=== PATIENT | male | born 2000 | race Caucasian/White ===

== ENCOUNTER 2018-10-29 01:30 | Inpatient (IN) | payer BC, OTHER ==
[~2018-10-29] VITALS: Ht 177.8 cm; Wt 104.3 kg
[2018-10-29] MEDS ORDERED: NS IV 1000 ML 1,000 ML IV STA (01:41)
[2018-10-29] MEDS ORDERED: fentaNYL INJECTION 100 MCG/2 ML AMP IVP STA ×2 (01:41→02:21)
[2018-10-29] MEDS ORDERED: ONDANSETRON 4 MG/2 ML (SDV) Z0FRAN IVP ONE (01:45)
[2018-10-29] MEDS ORDERED: NS IV 1000 ML 1,000 ML ONE ×3 (01:46→04:09)
--- NOTE | 2018-10-29 01:47 | ED Abdominal Pain ---
General Stated Complaint: ABD PAIN Source of Information: Patient Exam Limitations: No Limitations History of Present Illness Date Seen by Provider: Oct 29, 2018 Time Seen by Provider: 01:35 Initial Comments Here with acute onset of right-sided abdominal pain approximately 3 hours ago that is associated with nausea and the feeling like he has to have bowel movement but he is not. States pain is sharp and achy as well as crampy. Nothing seems to be making this better. Has not taken anything for the pain. Denies fever or chills. Timing/Duration: 1-3 Hours, Getting Worse Severity/Quality: Moderate, Aching, Cramping, Sharp Location: RLQ, Periumbilical Radiation: No Radiation Activities at Onset: None Modifying Factors: Worsens With Movement Associated Symptoms: Denies Symptoms; No Fever/Chills; Nausea/Vomiting; No Weakness Allergies and Home Medications Allergies Coded Allergies: No Known Drug Allergies (Unverified , 10/29/18) Patient Home Medication List Home Medication List Reviewed: Yes Review of Systems Review of Systems Constitutional: see HPI; No chills, No fever EENTM: No Symptoms Reported Respiratory: No Symptoms Reported Cardiovascular: No Symptoms Reported Gastrointestinal: See HPI, Abdominal Pain; Denies Constipated, Denies Diarrhea ; Nausea, Vomiting Genitourinary: No Symptoms Reported Musculoskeletal: no symptoms reported Skin: no symptoms reported All Other Systems Reviewed Negative Unless Noted: Yes Past Pryuugz-Xdswqm-Lalhbs Hx Past Med/Social Hx: Reviewed Nursing Past Med/Soc Hx Patient Social History Alcohol Use: Denies Use Recreational Drug Use: No Smoking Status: Never a Smoker Recent Foreign Travel: No Contact w/Someone Who Travel: No Past Medical History Surgeries: No Respiratory: No Cardiac: No Neurological: No Genitourinary: No Gastrointestinal: No Musculoskeletal: No Endocrine: No Family Medical History Reviewed Nursing Family Hx No Pertinent Family Hx Physical Exam Vital Signs Vital Signs - First Documented 10/29/18 01:38 Temp 96.4 Pulse 85 Resp 19 B/P (MAP) 154/94 (114) Capillary Refill : Height/Weight/BMI Height: '" Weight: lbs. oz. kg; BMI Method: General Appearance: WD/WN, no apparent distress Neck: full range of motion, supple Respiratory: lungs clear, normal breath sounds Cardiovascular: regular rate, rhythm, no murmur Gastrointestinal: normal bowel sounds, soft; No guarding; rebound, tenderness Extremities: non-tender, normal inspection Back: normal inspection, no CVA tenderness, no vertebral tenderness Neurologic/Psychiatric: alert, oriented x 3 Skin: normal color, warm/dry Focused Exam Lactate Level 10/29/18 01:45: Lactic Acid Level 6.30*H 10/29/18 04:10: Lactic Acid Level 2.51*H Lactic Acid Level Laboratory Tests Test 10/29/18 01:45 10/29/18 04:10 Lactic Acid Level 6.30 MMOL/L (0.50-2.00) *H 2.51 MMOL/L (0.50-2.00) *H Progress/Results/Core Measures Results/Orders Lab Results Laboratory Tests Test 10/29/18 01:45 10/29/18 02:34 10/29/18 04:10 Range/Units White Blood Count 21.5 H 4.3-11.0 10^3/uL Red Blood Count 5.33 4.35-5.85 10^6/uL Hemoglobin 14.2 13.3-17.7 G/DL Hematocrit 41 40-54 % Mean Corpuscular Volume 78 L 80-99 FL Mean Corpuscular Hemoglobin 27 25-34 PG Mean Corpuscular Hemoglobin Concent 34 32-36 G/DL Red Cell Distribution Width 13.1 10.0-14.5 % Platelet Count 327 130-400 10^3/uL Mean Platelet Volume 11.1 H 7.4-10.4 FL Neutrophils (%) (Auto) 84 H 42-75 % Lymphocytes (%) (Auto) 9 L 12-44 % Monocytes (%) (Auto) 7 0-12 % Eosinophils (%) (Auto) 0 0-10 % Basophils (%) (Auto) 0 0-10 % Neutrophils # (Auto) 17.9 H 1.8-7.8 X 10^3 Lymphocytes # (Auto) 2.0 1.0-4.0 X 10^3 Monocytes # (Auto) 1.5 H 0.0-1.0 X 10^3 Eosinophils # (Auto) 0.0 0.0-0.3 10^3/uL Basophils # (Auto) 0.1 0.0-0.1 10^3/uL Neutrophils % (Manual) 86 % Lymphocytes % (Manual) 6 % Monocytes % (Manual) 8 % Sodium Level 141 135-145 MMOL/L Potassium Level 3.3 L 3.6-5.0 MMOL/L Chloride Level 106 98-107 MMOL/L Carbon Dioxide Level 17 L 21-32 MMOL/L Anion Gap 18 H 5-14 MMOL/L Blood Urea Nitrogen 13 7-18 MG/DL Creatinine 1.07 0.60-1.30 MG/DL Estimat Glomerular Filtration Rate > 60 BUN/Creatinine Ratio 12 Glucose Level 179 H 70-105 MG/DL Lactic Acid Level 6.30 *H 2.51 *H 0.50-2.00 MMOL/L Calcium Level 9.7 8.5-10.1 MG/DL Corrected Calcium 8.5-10.1 MG/DL Total Bilirubin 0.4 0.1-1.0 MG/DL Aspartate Amino Transf (AST/SGOT) 17 5-34 U/L Alanine Aminotransferase (ALT/SGPT) 34 0-55 U/L Alkaline Phosphatase 71 40-136 U/L Total Protein 8.0 6.4-8.2 GM/DL Albumin 4.6 H 3.2-4.5 GM/DL Urine Color YELLOW Urine Clarity SLIGHTLY CLOUDY Urine pH 5 5-9 Urine Specific [place] 1.010 L 1.016-1.022 Urine Protein 1+ H NEGATIVE Urine Glucose (UA) NEGATIVE NEGATIVE Urine Ketones 2+ H NEGATIVE Urine Nitrite NEGATIVE NEGATIVE Urine Bilirubin NEGATIVE NEGATIVE Urine Urobilinogen NORMAL NORMAL MG/DL Urine Leukocyte Esterase NEGATIVE NEGATIVE Urine RBC (Auto) 5+ H NEGATIVE Urine RBC 25-50 H /HPF Urine WBC NONE /HPF Urine Squamous Epithelial Cells RARE /HPF Urine Crystals NONE /LPF Urine Bacteria TRACE /HPF Urine Casts NONE /LPF Urine Mucus NEGATIVE /LPF Urine Culture Indicated NO My Orders Orders - LISA MAYO MD Cbc With Automated Diff (10/29/18 01:41) Comprehensive Metabolic Panel (10/29/18 01:41) Ua Culture If Indicated (10/29/18 01:41) Ct Abd/Pelv W (Appendicitis) (10/29/18:41) Saline Lock/Iv-Start (10/29/18 01:41) Ondansetron Injection (Zofran Injectio (10/29/18 01:45) Ns Iv 1000 Ml (Sodium Chloride 0.9%) (10/29/18 01:41) Fentanyl Injection (Sublimaze Injection (10/29/18 01:41) Manual Differential (10/29/18 01:45) Iohexol Injection (Omnipaque 350 Mg/Ml 1 (10/29/18 02:15) Contrast Received (Contrast Received) (10/29/18 02:15) Ns (Ivpb) (Sodium Chloride 0.9%) (10/29/18 02:15) Fentanyl Injection (Sublimaze Injection (10/29/18 02:21) Ketorolac Injection (Toradol Injection) (10/29/18 02:21) Lactic Acid Analyzer (10/29/18 02:39) Blood Culture (10/29/18 02:39) Ceftriaxone For Iv Use (Rocephin For I (10/29/18 03:00) Saline Lock/Iv-Start (10/29/18 03:09) Ns Iv 1000 Ml (Sodium Chloride 0.9%) (10/29/18 03:09) Ns Iv 1000 Ml (Sodium Chloride 0.9%) (10/29/18 01:46) Ondansetron Injection (Zofran Injectio (10/29/18 01:48) Fentanyl Injection (Sublimaze Injection (10/29/18 01:48) Fentanyl Injection (Sublimaze Injection (10/29/18 02:25) Ketorolac Injection (Toradol Injection) (10/29/18 02:25) Ns Iv 1000 Ml (Sodium Chloride 0.9%) (10/29/18 03:10) Ceftriaxone For Iv Use (Rocephin For I (10/29/18 03:22) Ns (Ivpb) (Sodium Chloride 0.9% Ivpb Bag (10/29/18 03:22) Ns Iv 1000 Ml (Sodium Chloride 0.9%) (10/29/18 04:09) Nothing By Mouth (10/29/18 Breakfast) Abdomen/Kub 1view (10/29/18 05:36) Medications Given in ED Current Medications Medications Dose Ordered Sig/Susan Route Start Time Stop Time Status Last Admin Dose Admin Ceftriaxone Sodium 1000 mg/ Sodium Chloride 60 ml @ 100 mls/hr ONCE ONCE IV 10/29/18 03:00 10/29/18 03:35 DC 10/29/18 03:28 100 MLS/HR Iohexol 100 ml ONCE ONCE IV 10/29/18 02:15 10/29/18 02:16 DC 10/29/18 02:26 100 ML Ondansetron HCl 4 mg ONCE ONCE IVP 10/29/18 01:45 10/29/18 01:46 DC 10/29/18 01:52 4 MG Sodium Chloride 250 ml ONCE ONCE IV 10/29/18 02:15 10/29/18 02:16 DC 10/29/18 02:26 80 ML Vital Signs/I&O 10/29/18 01:38 Temp 96.4 Pulse 85 Resp 19 B/P (MAP) 154/94 (114) Progress Progress Note : Progress Note Seen and evaluated. IV, labs, UA, normal saline 1 L bolus and fentanyl [address] abdomen and pelvis kidney appendicitis protocol ordered. Monitor patient. CT complete. Findings of perinephric stranding as well as right distal ureter stone. We will get blood cultures and lactic acid. Initial set drawn with an initial labs we will process that now. Rocephin 1 g IV after second blood culture. Repeat fentanyl 75 g IV and Toradol 30 mg IV ordered. Monitor patient. 0310: Lactic acid noted to be 6+. 2 more liters of normal saline ordered for 30 mL/kg IV bolus. Patient is not hypotensive. 0330: Patient is currently pain-free. Pending repeat lactic acid drawn and they will admit based on that level to regular floor or ICU status. Monitor patient. Lactic acid improved to 2.5. Patient feeling much better. I discussed the case with Dr. Tadeo at 0524 and she accepts patient for admission, inpatient status. I discussed the case with Dr. Saxena at 0530. We will keep the patient nothing by mouth and he will see him later this morning. Patient and family agree with plan. Diagnostic Imaging Diagonstic Imaging: CT Plain Films/CT/US/NM/MRI: abdomen, pelvis Comments Right renal perinephric stranding and mild right hydronephrosis associated with 2 mm stone in the right UVJ. Reviewed: Reviewed by Me Departure Communication (Admissions) Time/Spoke to Admitting Phy: 05:23 Time/Spoke to Consulting Phy: 05:30 Impression Primary Impression: Right kidney stone Additional Impression: Pyelonephritis Disposition: ADMITTED INPATIENT Condition: Stable Admissions Decision to Admit Reason: Admit from ER (General) Decision to Admit/Date: Oct 29, 2018 Time/Decision to Admit Time: 03:15 Departure-Patient Inst. Referrals: NO,LOCAL PHYSICIAN (PCP/Family) Primary Care Physician LISA MAYO MD Oct 29, 2018 01:47
[2018-10-29] MEDS ORDERED: ONDANSETRON 4 MG/2 ML (SDV) Z0FRAN ONE (01:48)
[2018-10-29] MEDS ORDERED: fentaNYL INJECTION 100 MCG/2 ML AMP ONE ×2 (01:48→02:25)
[2018-10-29 01:57] LABS: BASOPHILS # (AUTO) 0.1 10^3/uL (0.0-0.1); BASOPHILS % (AUTO) 0 % (0-10); EOSINOPHILS % (AUTO) 0 % (0-10); HEMATOCRIT 41 % (40-54); HEMOGLOBIN 14.2 G/DL (13.3-17.7); LYMPHOCYTES % (AUTO) 9 % (12-44); MEAN CORPUSCULAR HEMOGLOBIN 27 PG (25-34); MEAN CORPUSCULAR HGB CONC 34 G/DL (32-36); MEAN CORPUSCULAR VOLUME 78 FL (80-99); MEAN PLATELET VOLUME 11.1 FL (7.4-10.4); MONOCYTES # (AUTO) 1.5 X 10^3 (0.0-1.0); MONOCYTES % (AUTO) 7 % (0-12); NEUTROPHILS # (AUTO) 17.9 X 10^3 (1.8-7.8); NEUTROPHILS % (AUTO) 84 % (42-75); PLATELET COUNT 327 10^3/uL (130-400); RED BLOOD COUNT 5.33 10^6/uL (4.35-5.85); RED CELL DISTRIBUTION WIDTH 13.1 % (10.0-14.5); WHITE BLOOD COUNT 21.5 10^3/uL (4.3-11.0)
[2018-10-29] MEDS ORDERED: NS 250 ML (IVPB) BAG IV ONE (02:15)
[2018-10-29] MEDS ORDERED: IOHEXOL 350 MG/ML 100 ML (OMNIPAQUE 350) VIAL IV ONE (02:15)
[2018-10-29] MEDS ORDERED: RECEIVED CONTRAST (Hold Metformin) IV SCH (02:15)
[2018-10-29 02:17] LABS: ALANINE AMINOTRANSFERASE 34 U/L (0-55); ALBUMIN 4.6 GM/DL (3.2-4.5); ALKALINE PHOSPHATASE 71 U/L (40-136); BILIRUBIN,TOTAL 0.4 MG/DL (0.1-1.0); BUN/CREATININE RATIO 12; CALCIUM 9.7 MG/DL (8.5-10.1); CARBON DIOXIDE 17 MMOL/L (21-32); CHLORIDE 106 MMOL/L (98-107); CREATININE SERUM 1.07 MG/DL (0.60-1.30); GFR ESTIMATED > 60; GLUCOSE 179 MG/DL (70-105); POTASSIUM 3.3 MMOL/L (3.6-5.0); SODIUM 141 MMOL/L (135-145)
[2018-10-29] MEDS ORDERED: KETOROLAC 30 MG/ML VIAL IVP STA (02:21)
[2018-10-29] MEDS ORDERED: KETOROLAC 30 MG/ML VIAL ONE (02:25)
[2018-10-29 02:41] LABS: LYMPHOCYTES % (MANUAL) 6 %; MONOCYTES % (MANUAL) 8 %; NEUTROPHILS % (MANUAL) 86 %
[2018-10-29 02:42] LABS: BILIRUBIN,URINE NEGATIVE (NEGATIVE); CLARITY,URINE SLIGHTLY CLOUDY; COLOR,URINE YELLOW; GLUCOSE, URINE (UA) NEGATIVE (NEGATIVE); KETONES,URINE 2+ (NEGATIVE); LEUKOCYTE ESTERASE ,URINE NEGATIVE (NEGATIVE); NITRITE,URINE NEGATIVE (NEGATIVE); PH,URINE 5 (5-9); PROTEIN,URINE 1+ (NEGATIVE); UROBILINOGEN,URINE NORMAL (NORMAL)
[2018-10-29 02:51] LABS: BACTERIA,URINE TRACE /HPF; RBC,URINE 25-50 /HPF; SQUAMOUS EPITHELIAL CELL,UR RARE /HPF
[2018-10-29] MEDS ORDERED: cefTRIAXone FOR IV USE 1,000 MG in NS (IVPB) 50 ML IV ONE (03:00)
[2018-10-29] MEDS: NS IV 1000 ML 1,000 ML IV SCH ×5 (03:15→23:32)
[2018-10-29] MEDS ORDERED: cefTRIAXone 1 GM/10 ML for IV (ROCEPHIN) ONE (03:22)
[2018-10-29] MEDS ORDERED: NS (IVPB) 50 ML ONE (03:22)
--- NOTE | 2018-10-29 07:38 | Diagnostic Imaging Report ---
EXAMINATION: Abdominal radiographs, single supine view, 2 images. DATE: October 29, 2018. CLINICAL INDICATION: 18-year-old male, abdominal pain with nausea. COMPARISON: CT abdomen and pelvis October 29, 2018. COMMENTS: There is contrast within the urinary bladder likely relating to recent administration of contrast. There is transitional lumbosacral anatomy. L5 is labeled as having an enlarged left lateral mass with pseudoarticulation with S1. If spinal intervention is to be performed in the future, recommend careful correlation with levels. There are no abnormally distended gas-filled segments of bowel. There is no identified free intraperitoneal air, pneumatosis, or portal venous gas. There is no radiographically visible abnormal calcification overlying the kidneys, ureters, or right lower quadrant. The 2 mm stone at the right distal ureterovesical junction is better seen on recent comparison CT. IMPRESSION: 1. Previously noted 2 mm stone at the distal ureterovesical junction on the right is seen better on prior CT and not well visualized radiographically. Dictated by: Dictated on workstation # [id number]
--- NOTE | 2018-10-29 07:45 | Diagnostic Imaging Report ---
PROCEDURE: CT abdomen and pelvis with contrast, rule out appendicitis. TECHNIQUE: Multiple contiguous axial images were obtained through the abdomen and pelvis after the administration of intravenous contrast. DATE: October 29, 2018. COMPARISON: None. INDICATION: 18-year-old male, abdominal pain and nausea. FINDINGS: The visualized portions of the lung bases are clear. The heart is not enlarged. There is no pericardial effusion. The liver is normal in size and contour. There is no identified liver lesion. The main, right, and left portal veins are patent. The gallbladder is unremarkable. There is no intrahepatic or extrahepatic bile duct dilation. The main pancreatic duct is not abnormally dilated. Unremarkable appearance of the pancreatic parenchyma. There is a small accessory splenule on axial image 39. The spleen is not enlarged. The adrenal glands are unremarkable. There is inflammatory stranding adjacent to the right renal pelvis and right proximal ureter. There is a 2 mm stone in the right distal ureter at the ureterovesical junction on axial image 137. There is no michelle hydronephrosis. The urinary bladder is unremarkable in appearance. The intestinal tract is not distended. The appendix is well seen on axial image 77 and adjacent sequential images. There is no evidence of acute appendicitis. There is no free intraperitoneal air. There is no drainable fluid collection. There is no free pelvic fluid. There is no identified abnormally enlarged lymph node within the abdomen or pelvis which meets CT size criteria for adenopathy. There is no identified acute bony abnormality. There is transitional lumbosacral anatomy. L5 is labeled as having an enlarged left lateral mass with pseudoarticulation with S1. If spinal intervention is to be performed in the future, recommend careful correlation with levels. IMPRESSION: CT ABDOMEN AND PELVIS. 1. 2 mm stone in the right distal ureter at the ureterovesical junction without michelle hydronephrosis. 2. Transitional lumbosacral anatomy. Dictated by: Dictated on workstation # [id number]
[2018-10-29] MEDS ORDERED: HYDROcodone/APAP 5 MG/325 MG (LORTAB) TAB PO PRN (08:15)
[2018-10-29] MEDS ORDERED: fentaNYL INJECTION 100 MCG/2 ML AMP IV PRN (08:15)
[2018-10-29] MEDS ORDERED: RT-ALBUTEROL SULF 2.5 MG/3 ML PRE-MIX VIAL INH PRN (08:45)
[2018-10-29] MEDS: KETOROLAC 30 MG/ML VIAL IV PRN (10:13)
[2018-10-29 12:00] VITALS: BP 120/64
--- NOTE | 2018-10-29 14:29 | CONSULTATION REPORT ---
DATE OF SERVICE: 10/29/2018 ATTENDING PHYSICIAN: Dr. Tadeo. SUMMARY: After reviewing the patient's records, interviewing him and examining him and reviewing his x-rays, a 18-year-old white man admitted after presenting to the emergency room with abdominal pain and vomiting. CT scan revealed a 2 mm stone just above the right UVJ with very mild obstruction. No fever. His white count was 21,000. His lactic acid was slightly elevated. Pain was controlled in the ER. The patient was subsequently admitted to the hospital and started on IV antibiotic and fluids. When I saw him, he was feeling much better, almost asymptomatic, denies any previous similar episodes. REVIEW OF SYSTEMS: Otherwise negative. ALLERGIES: No known drug allergies. SOCIAL HISTORY: He is single. No smoking, no alcohol, no drugs. PAST HISTORY: No previous surgeries. No medical illnesses. MEDICATIONS: No medications. FAMILY HISTORY: No stones. PHYSICAL EXAMINATION: VITAL SIGNS: Per chart. GENERAL: Well-nourished, well developed in no acute distress. HEENT: Normocephalic. ENT is unremarkable. NECK: Supple. No bruits. CHEST: Clear, nontender. HEART: Regular rate and rhythm, no murmurs. ABDOMEN: Soft. Very mild right CVA tenderness. EXTREMITIES: Lower extremity, no edema or cyanosis. NEUROLOGIC EXAM: Grossly intact. Oriented x3. IMPRESSION: Right distal ureteral stone "passable." RECOMMENDATION: Continue present management. We will get a KUB tomorrow morning and CBC tomorrow morning and per most probably if everything goes fine, we will dismiss the patient and watch him as an outpatient. Job ID: [id number] DocumentID: [id number] Dictated Date: 10/29/2018 14:10:56 Director Of Slot Operations Date: 10/29/2018 14:28:51 Dictated By: SARAH DANIEL MD
[2018-10-29 16:00] VITALS: BP 128/64
--- NOTE | 2018-10-29 16:19 | History & Physical-Hospitalist ---
History of Present Illness HPI/Chief Complaint Pt is a 18yoCM with no past medical history who presented to the ER due to acute onset lower back and abdominal pain. He states that he has never had a similar episode of kidney stones in the past. He denies fever, chills, or dysuria. He was found to have a 2mm right ureteral stone in the UVJ and a lactic acid of 6.30 and was admitted for pain control and IV abx as there was some stranding around his right kidney and concern for pyelonephritis. He states his pain is now well controlled and has no complaints. Source: patient Date Seen 10/29/18 Time Seen by a Provider: 16:16 Attending Physician Julia Tadeo DO PCP No,Local Physician Referring Physician Date of Admission Oct 29, 2018 at 07:22 Home Medications & Allergies Home Medications Reviewed patient Home Medication Reconciliation performed by pharmacy medication reconciliations emergency medical technician/driver and/or nursing. Patients Allergies have been reviewed. Allergies Allergies Coded Allergies No Known Drug Allergies (Mpjhmwllhn69/7/18) Past Ebeahsf-Gycnpr-Ijzmno Hx Past Med/Social Hx: Reviewed Nursing Past Med/Soc Hx Patient Social History Alcohol Use: Denies Use Recreational Drug Use: No Smoking Status: Never a Smoker Physical Abuse Screen: No Sexual Abuse: No Recent Foreign Travel: No Contact w/other who traveled: No Recent Hopitalizations: No Recent Infectious Disease Expo: No Immunizations Up To Date Date of Influenza Vaccine: Aug 23, 2018 Seasonal Allergies Seasonal Allergies: No Past Medical History History of Blood Disorders: No Family History Reviewed Nursing Family Hx No Pertinent Family Hx mom with kidney stones Review of Systems Constitutional: No chills, No fever EENTM: No blurred vision, No double vision, No nose congestion, No throat pain Respiratory: No cough, No dyspnea on exertion, No short of breath Cardiovascular: No chest pain, No edema, No palpitations Gastrointestinal: No abdominal pain, No constipation, No diarrhea, No nausea, No vomiting Genitourinary: No dysuria, No frequency; hematuria Musculoskeletal: see HPI Skin: No lesions, No rash Psychiatric/Neurological: Denies Headache, Denies Numbness, Denies Tingling Physical Exam Physical Exam Vital Signs Vital Signs - First Documented 10/29/18 10/29/18 10/29/18 01:38 08:02 08:39 Temp 96.4 Pulse 85 Resp 19 B/P (MAP) 154/94 (114) Pulse Ox 98 O2 Delivery Room Air FiO2 21 Capillary Refill : Less Than 3 Seconds Height, Weight, BMI Height: 5'10.00" Weight: 230lbs. oz. 104.275860wn; BMI Method:Stated General Appearance: No Apparent Distress, WD/WN HEENT: PERRL/EOMI, Moist Mucous Membranes Neck: Non Tender, Supple Respiratory: Lungs Clear, No Respiratory Distress Cardiovascular: Regular Rate, Rhythm, No Murmur Gastrointestinal: Normal Bowel Sounds, Non Tender, Soft Extremity: Normal Capillary Refill, No Calf Tenderness Neurologic/Psychiatric: Alert, Oriented x3, Normal Mood/Affect Skin: Normal Color, Warm/Dry Results Results/Procedures Labs Laboratory Tests 10/29/18 01:45 Patient resulted labs reviewed. Imaging: Reviewed Imaging Report Assessment/Plan Admission Diagnosis Right ureteral stone Admission Status: Observation Diagnosis/Problems Diagnosis/Problems (1) Right kidney stone Status: Acute Assessment & Plan: Dr Saxena consulted, appreciate recs Continue IVF and pain medications Follow up KUB in AM Concern for pyelonephritis on imaging but no infection on UA Continue on abx though this does not appear to be sepsis related FERNANDO FONG MD Oct 29, 2018 16:19
[2018-10-29 19:39] VITALS: BP 136/84
[2018-10-30] VITALS: BP 135/65
[2018-10-30 04:00] VITALS: BP 130/74
[2018-10-30] MEDS: KETOROLAC 30 MG/ML VIAL IV PRN (05:38)
[2018-10-30 05:57] LABS: BASOPHILS % (AUTO) 0 % (0-10); EOSINOPHILS # (AUTO) 0.1 10^3/uL (0.0-0.3); EOSINOPHILS % (AUTO) 1 % (0-10); HEMATOCRIT 37 % (40-54); HEMOGLOBIN 12.3 G/DL (13.3-17.7); LYMPHOCYTES # (AUTO) 2.6 X 10^3 (1.0-4.0); LYMPHOCYTES % (AUTO) 34 % (12-44); MEAN CORPUSCULAR HEMOGLOBIN 27 PG (25-34); MEAN CORPUSCULAR HGB CONC 34 G/DL (32-36); MEAN CORPUSCULAR VOLUME 79 FL (80-99); MEAN PLATELET VOLUME 11.1 FL (7.4-10.4); MONOCYTES # (AUTO) 0.9 X 10^3 (0.0-1.0); MONOCYTES % (AUTO) 11 % (0-12); NEUTROPHILS # (AUTO) 4.2 X 10^3 (1.8-7.8); NEUTROPHILS % (AUTO) 54 % (42-75); PLATELET COUNT 241 10^3/uL (130-400); RED BLOOD COUNT 4.62 10^6/uL (4.35-5.85); RED CELL DISTRIBUTION WIDTH 13.4 % (10.0-14.5); WHITE BLOOD COUNT 7.8 10^3/uL (4.3-11.0)
[2018-10-30] MEDS ORDERED: cefTRIAXone 1 GM/NS 50 ML IVPB IV SCH ×2 (06:00)
[2018-10-30 07:58] VITALS: BP 129/76
[2018-10-30] MEDS: NS IV 1000 ML 1,000 ML IV SCH (08:01)
--- NOTE | 2018-10-30 09:50 | Progress Note-Urology ---
Progress Note-Urology Progress Notes/Assess & Plan Progress/Assessment & Plan DOING AND FEELING WELL. MILD PAIN WITH VOIDING. WBC NL. KUB NOT DONE YET. PLAN 1.DISCHARGE, KUB ON WAY HOME 2. ABX, FLOMAX, PAIN MED 3. STRAIN ALL URINES AND SAVE ANY STONE PASSED AND BRING TO OFFICE APPOINTMENT NEXT WEEK 4.INCREASE FLUIDS, MOSTLY CAFFEINATED ONES 4. CALL OR ED PRN Final Diagnosis RT URETERAL STONE SARAH DANIEL MD Oct 30, 2018 09:50
[2018-10-30] MEDS ORDERED: CEPH-507 PO (10:20)
[2018-10-30] MEDS ORDERED: ACHD5005 PO (10:20)
--- NOTE | 2018-10-30 10:22 | Discharge Inst-Simple/Standard ---
Discharge Inst-Standard Discharge Medications New, Converted or Re-Newed RX: Transmitted to Pharmacy Patient Instructions/Follow Up Plan of Care/Instructions/FU: Please continue to take your medications as written. Please follow up with Dr Saxena next week. Activity as Tolerated: Yes Discharge Diet: No Restrictions Return to The Hospital For: Worsening pain, inability to urinate, fever, if you feel you are getting worse. FERNANDO FONG MD Oct 30, 2018 10:22
--- NOTE | 2018-10-30 10:23 | Discharge Summary-Hospitalist ---
Diagnosis/Chief Complaint Date of Admission Oct 29, 2018 at 07:22 Date of Discharge Discharge Date: Oct 30, 2018 Admission Diagnosis Right ureteral stone Discharge Diagnosis (1) Right kidney stone Status: Acute Assessment & Plan: Dr Saxena consulted, appreciate recs Follow up KUB did not show stone Concern for pyelonephritis on imaging but no infection on UA Continue on abx though this does not appear to be sepsis related Discharge Summary Procedures/Consulations Dr Saxena Discharge Physical Exam Allergies: Coded Allergies: No Known Drug Allergies (Unverified , 10/29/18) Vitals & I&Os Vital Signs Date Time Temp Pulse Resp B/P (MAP) Pulse Ox O2 Delivery O2 Flow Rate FiO2 10/30/18 12:00 79 18 129/76 98 Nasal Cannula 10/30/18 07:58 97.0 10/29/18 08:39 21 General Appearance: No Apparent Distress, WD/WN Cardiovascular: Regular Rate, Rhythm, No Murmur Hospital Course Pt was admitted due to concerns for pyelonephritis and was found to have a uteral stone. UA was not consistent with infection though so pyelonephritis was ruled out. His pain was controlled and leukocytosis resolved and he was never febrile. He was discharged home with pain medication, Flomax, and a strainer to follow up with Dr Saxena next week. Labs (last 24 hrs) Laboratory Tests 10/30/18 12:00: Microbiology 10/29/18 Blood Culture - Preliminary, Resulted No growth Patient resulted labs reviewed. Pending Labs Imaging: Reviewed Imaging Report Discussion & Recommendations Discharge Planning: >30 minutes discharge planning Discharge Home Medications: Active Scripts Active Flomax (Tamsulosin HCl) 0.4 Mg Cap 0.4 Mg PO HS Keflex (Cephalexin) 500 Mg Capsule 500 Mg PO BID Hydrocodone/Acetaminophen 5/325mg Tablet (Acetaminophen/Hydrocodone Bitart) 1 Tab Tab 1 Tab PO Q6H PRN Instructions to patient/family Please see electronic discharge instructions given to patient. Clinical Quality Measures DVT/VTE Risk/Contraindication: RFS Level Per Nursing on Admit: 0=No Risk/No VTE PPX FERNANDO FONG MD Oct 30, 2018 10:23
--- NOTE | 2018-10-30 10:30 | Diagnostic Imaging Report ---
PATIENT HISTORY: Right ureteral stone. TECHNIQUE: Single frontal view of the abdomen COMPARISON: 10/29/2018 FINDINGS: Bowel loops are nondistended. There is a small amount of stool in the colon. No large collection of free air seen. Slight left convex curvature of the lumbar spine may be positional. There is transitional anatomy at the lumbosacral junction. No extraosseous calculi are seen. The previously seen 2 mm calculus at the ureterovesicular junction is not evident radiographically. IMPRESSION: 1. The previously seen 2 mm calculus at the right ureterovesicular junction is not evident radiographically and is better seen on the prior CT. Dictated by: Dictated on workstation # [id number]
[2018-10-30] MEDS ORDERED: TAMS0.4C98 PO (10:46)
[2018-10-30 12:00] VITALS: BP 129/76
== END 2018-10-30 12:00 | disposition home or self-care (01) | DRG 694 ==
LOC: ER 01:31 → 4TH 07:22
PROVIDERS: ADMIT Internal Medicine; ATTEND Internal Medicine
DX: N20.1 Calculus of ureter (principal); N13.30 Unspecified hydronephrosis; D72.829 Elevated white blood cell count, unspecified
CPT/HCPCS: 36415; 74018; 74177; 80053; 81000; 83605; 85007; 85025; 85027; 87040; 94760; 96361; 96365; 96375; 96376

== ENCOUNTER 2020-10-28 10:50 | Emergency (ER) | payer BC ==
[~2020-10-28] VITALS: Ht 172 cm; Wt 122.4 kg
[~2020-10-28 10:50] MED LIST: ACHD5005 PO; CEPH-507 PO; TMSL.4C PO
[2020-10-28 11:07] LABS: BILIRUBIN,URINE NEGATIVE (NEGATIVE); CLARITY,URINE SL CLOUDY; COLOR,URINE YELLOW; GLUCOSE, URINE (UA) NEGATIVE (NEGATIVE); KETONES,URINE NEGATIVE (NEGATIVE); LEUKOCYTE ESTERASE ,URINE NEGATIVE (NEGATIVE); NITRITE,URINE NEGATIVE (NEGATIVE); PH,URINE 6.5 (5-9); PROTEIN,URINE TRACE (NEGATIVE)
[2020-10-28 11:15] LABS: BACTERIA,URINE TRACE /HPF; RBC,URINE 50-100 /HPF; SQUAMOUS EPITHELIAL CELL,UR RARE /HPF; WBC,URINE 0-2 /HPF
--- NOTE | 2020-10-28 11:48 | Diagnostic Imaging Report ---
INDICATION: Renal stones. COMPARISON: 10/30/18. FINDINGS: AP view of the abdomen demonstrates no mineralized renal or ureteral calculi. Nonobstructive bowel gas pattern. Small volume of colonic stool. Normal regional skeleton. IMPRESSION: No radiographically apparent urinary tract calculi. Dictated by: Dictated on workstation # [id number]
[2020-10-28] MEDS ORDERED: ONDA4TAB11 SL (12:17)
[2020-10-28] MEDS ORDERED: ACHD5005 PO (12:17)
--- NOTE | 2020-10-28 12:17 | ED Abdominal Pain ---
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 pt reports its similar to kidney stone he had. 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 It was originally rated as 8/10 and now 2/10. He did take an old hydrocodone he had at the home. He denies any associated symptoms such as constipation, diarrhea, nausea, hematuria, etc. This pain is reminiscent of prior ureteral stone. Allergies and Home Medications Allergies Coded Allergies: No Known Drug Allergies (Unverified , 10/29/18) Home Medications Cephalexin 500 Mg Capsule, 500 MG PO BID Prescribed by: FERNANDO FONG on 10/30/18 1020 Hydrocodone Bit/Acetaminophen 1 Tab Tab, 1 TAB PO Q6H PRN for PAIN-MODERATE Prescribed by: FERNANDO FONG on 10/30/18 1020 Hydrocodone/Acetaminophen 1 Each Tablet, 1 EACH PO Q4H PRN for PAIN-BREAKTHROUGH Prescribed by: MOE VILLAGOMEZ on 10/28/20 1217 Ondansetron 4 Mg Tab.rapdis, 4 MG SL Q4H Prescribed by: MOE VILLAGOMEZ on 10/28/20 1217 Tamsulosin HCl 0.4 Mg Cap, 0.4 MG PO HS Prescribed by: FERNANDO FONG on 10/30/18 1046 Patient Home Medication List Home Medication List Reviewed: Yes Review of Systems Review of Systems Constitutional: no symptoms reported EENTM: No Symptoms Reported Respiratory: No Symptoms Reported Cardiovascular: No Symptoms Reported Gastrointestinal: See HPI Genitourinary: See HPI Musculoskeletal: no symptoms reported Skin: no symptoms reported Psychiatric/Neurological: No Symptoms Reported Endocrine: No Symptoms Reported Hematologic/Lymphatic: No Symptoms Reported Past Fvfsyqc-Iawvjp-Osrtiu Hx Past Med/Social Hx: Reviewed Nursing Past Med/Soc Hx Patient Social History Alcohol Use: Occasionally Uses Recreational Drug Use: No Smoking Status: Never a Smoker Recent Foreign Travel: No Contact w/Someone Who Travel: No Recent Infectious Disease Expo: No Recent Hopitalizations: No Physical Abuse: No Sexual Abuse: No Mistreated: No Fear: No Immunizations Up To Date Date of Influenza Vaccine: Aug 23, 2018 Seasonal Allergies Seasonal Allergies: No Past Medical History Surgeries: No Respiratory: No Cardiac: No (WAS ON LIPITOR X 2 MONTHS FOR HIGH CHOLESTEROL) Neurological: No Genitourinary: Yes Kidney Stones Gastrointestinal: No Musculoskeletal: No Endocrine: No HEENT: No Cancer: No Psychosocial: No Integumentary: No Blood Disorders: No Family Medical History No Pertinent Family Hx mom with kidney stones Physical Exam Vital Signs Vital Signs - First Documented 10/28/20 11:01 Temp 36.1 Pulse 106 Resp 18 B/P (MAP) 142/88 (106) Pulse Ox 98 Capillary Refill : Less Than 3 Seconds Height/Weight/BMI Height: 5'10.00" Weight: 230lbs. 0.0oz. [id number]; 41.00 BMI Method:Stated General Appearance: WD/WN, no apparent distress, obese HEENT: PERRL/EOMI, normal ENT inspection Neck: normal inspection Respiratory: lungs clear, normal breath sounds, no respiratory distress Cardiovascular: regular rate, rhythm, no edema, no murmur Gastrointestinal: normal bowel sounds, non tender, soft Extremities: normal inspection, no pedal edema Back: no vertebral tenderness Neurologic/Psychiatric: biztalk architect II-XII nml as tested, no motor/sensory deficits, alert, normal mood/affect, oriented x 3 Skin: normal color, warm/dry Progress/Results/Core Measures Results/Orders Lab Results Laboratory Tests Test 10/28/20 11:02 Range/Units Urine Color YELLOW Urine Clarity SL CLOUDY Urine pH 6.5 5-9 Urine Specific [place] 1.025 H 1.016-1.022 Urine Protein TRACE H NEGATIVE Urine Glucose (UA) NEGATIVE NEGATIVE Urine Ketones NEGATIVE NEGATIVE Urine Nitrite NEGATIVE NEGATIVE Urine Bilirubin NEGATIVE NEGATIVE Urine Urobilinogen 0.2 < = 1.0 MG/DL Urine Leukocyte Esterase NEGATIVE NEGATIVE Urine RBC (Auto) 3+ H NEGATIVE Urine RBC 50-100 H /HPF Urine WBC 0-2 /HPF Urine Squamous Epithelial Cells RARE /HPF Urine Crystals NONE /LPF Urine Bacteria TRACE /HPF Urine Casts NONE /LPF Urine Mucus MODERATE H /LPF Urine Culture Indicated NO My Orders Orders - MOE CAMPBELL MD Ua Culture If Indicated (10/28/20 10:56) Abdomen/Kub 1view (10/28/20 11:29) Vital Signs/I&O 10/28/20 10/28/20 11:01 12:34 Temp 36.1 36.1 Pulse 106 86 Resp 18 18 B/P (MAP) 142/88 (106) 136/87 (106) Pulse Ox 98 98 Blood Pressure Mean: 106 Progress Progress Note : Progress Note Exam was unremarkable. Pain had subsided greatly. Hematuria was noted on urinalysis. I discussed options with the patient. He may have already passed a ureteral stone. We discussed obtaining CT versus KUB. I suggested straining his urine and evaluating with KUB initially. If symptoms persist, I recommended moving on to CT scan. These recommendations were made to spare him the radiation exposure at such a young age. He is agreeable to this plan. KUB was obtained and revealed no calculi correlating with ureteral stone. Prescriptions were provided to treat symptoms if necessary. Strainer was provided. Diagnostic Imaging Diagonstic Imaging: Xray Plain Films/CT/US/NM/MRI: abdomen, pelvis Comments KUB viewed by me and report reviewed. See report below: NAME: CHANG [facility] REC#: [id number] PT STATUS: DEP ER : 2000 PHYSICIAN: MOE CAMPBELL MD ADMIT DATE: 10/28/20/ER Signed Date of Exam:10/28/20 ABDOMEN/KUB 1VIEW INDICATION: Renal stones. COMPARISON: 10/30/18. FINDINGS: AP view of the abdomen demonstrates no mineralized renal or ureteral calculi. Nonobstructive bowel gas pattern. Small volume of colonic stool. Normal regional skeleton. IMPRESSION: No radiographically apparent urinary tract calculi. Dictated by: Dictated on workstation # [id number] Dict: 10/28/20 1137 Trans: 10/28/20 1234 [facility] [id number] Interpreted by: CHERI HENDRIX MD Electronically signed by: CHERI HENDRIX MD 10/28/20 1234 Departure Impression Primary Impression: Right flank pain Additional Impression: Hematuria Qualified Codes: R31.9 - Hematuria, unspecified Disposition: HOME, SELF-CARE Condition: Improved Departure-Patient Inst. Decision time for Depature: 12:13 Referrals: NO,LOCAL PHYSICIAN (PCP/Family) Primary Care Physician Patient Instructions: Kidney Stone Diet, Kidney Stones in Adults Add. Discharge Instructions: For minor pain you may take Tylenol and/or ibuprofen. For more severe pain or pain not controlled by [id number]-[id number] medications, you may take hydrocodone as prescribed. You may take Zofran (ondansetron) as prescribed if you develop nausea and vomiting. Strain your urine for the next couple of days or as long as you are symptomatic. Bring any stones you collect to a follow-up appointment with your primary care provider or urologist. Please see your primary care provider or urologist in 1 to 2 weeks to ensure the blood in your urine clears. This is important because blood in the urine can be an indicator of a number of illnesses including kidney stone, urogenital cancers, infections, etc. Return to the emergency room if you have worsening symptoms despite treatment. All discharge instructions reviewed with patient and/or family. Voiced understanding. Scripts Ondansetron (Ondansetron Odt) 4 Mg Tab.rapdis 4 MG SL Q4H, #10 TAB Prov: MOE CAMPBELL MD 10/28/20 Hydrocodone/Acetaminophen (Hydrocodone-Acetamin 5-325 mg) 1 Each Tablet 1 EACH PO Q4H PRN for PAIN-BREAKTHROUGH, #10 TAB Prov: MOE CAMPBELL MD 10/28/20 MOE CAMPBELL MD Oct 28, 2020 12:17
[2020-10-28 12:34] VITALS: BP 136/87
== END 2020-10-28 12:34 | disposition home or self-care (01) ==
LOC: EDUNIT# 10:50 → ER 10:51
DX: R10.31 Right lower quadrant pain (principal); R31.9 Hematuria, unspecified; E66.9 Obesity, unspecified; Z68.41 Body mass index [BMI] 40.0-44.9, adult
CPT/HCPCS: 74018; 81000

== ENCOUNTER → 2020-11-02 | Outpatient (CLI) | payer BC ==
[~2020-11-02] MED LIST changes: +ONDA4TAB11 SL
--- NOTE | 2020-11-02 14:32 | Diagnostic Imaging Report ---
PROCEDURE: US Renal Bilateral. TECHNIQUE: Multiple real-time grayscale images were obtained over the kidneys in various projections bilaterally. INDICATION: Hematuria. COMPARISON: None available. FINDINGS: The right kidney is 13 cm in length. The left kidney is 12 cm in length. Both kidneys demonstrate normal cortical thickness. No hydronephrosis or shadowing echogenic calculi on either side. Incidental note of hepatic steatosis. The urinary bladder is normally filled without isolated wall thickening. Both ureteral jets are seen indicative of ureteral patency. Prevoid bladder volume is 318 mL. No post void residual. IMPRESSION: 1. No hydronephrosis or shadowing echogenic calculi. 2. Incidental note of hepatic steatosis. Dictated by: Dictated on workstation # [id number]
== END ==
LOC: RAD 12:35
PROVIDERS: ATTEND Nurse Practitioner Family
DX: N20.0 Calculus of kidney (principal); R31.9 Hematuria, unspecified
CPT/HCPCS: 76770